=== PATIENT | female | born 1965 | race Caucasian/White ===

== ENCOUNTER → 2017-02-17 | Outpatient (CLI) | payer BC, OTHER ==
--- NOTE | 2017-02-17 17:56 | RAD ---
Left lower extremity venous ultrasound, 02/17/2017 : History: Foot and ankle pain Duplex evaluation including grayscale, color flow and spectral Doppler analysis was performed. The femoral and popliteal veins show no filling defects to suggest DVT. The visualized calf veins are unremarkable. IMPRESSION: There is no sonographic evidence of deep vein thrombosis in the left lower extremity
== END | disposition home or self-care (01) ==
LOC: US 12:33
PROVIDERS: ATTEND Nurse Practitioner Family
DX: M79.662 Pain in left lower leg (principal)
CPT/HCPCS: 93971

== ENCOUNTER → 2021-11-29 | Outpatient (CLI) | payer OTHER ==
--- NOTE | 2021-11-29 15:14 | KCIC ---
EXAMINATION: CT LOWER LEFT EXTREMITY WITHOUT CONTRAST, 11/29/2021 12:38 PM CLINICAL INDICATION: Avascular necrosis, left hip pain. Hurts to bear weight. COMPARISON: MRI left hip 10/23/2021 TECHNIQUE: Helical CT imaging performed of the left hip without the use of intravenous contrast. Sagi ttal and coronal reformats were obtained. One or more of the following individualized dose reduction techniques were utilized for this examinat ion: 1. Automated exposure control 2. Adjustment of the mA and/or kV according to patient size 3. Use of iterative reconstruction technique. FINDINGS: Subchondral sclerosis and geographic subchondral lucencies in the femoral head correspondin g with with osteonecrosis seen on 10/23/2021. There is no new fracture line or subchondral collapse. The left joint space is maintained. The visualized portion of the pelvis is unremarkable. IMPRESSION: Osteonecrosis of the left femoral head, with CT appearance corresponding with the MRI on 10/23/2021. There is no new fracture line or subchondral collapse. Electronically signed by: Ghislaine Hurt MD (11/29/2021 3:12 PM) [id number]
== END ==
LOC: KCIC CT 12:34
PROVIDERS: ATTEND Orthopaedic Surgery
DX: M87.852 Other osteonecrosis, left femur (principal); M87.052 Idiopathic aseptic necrosis of left femur
CPT/HCPCS: 73700